=== PATIENT | female | born 1995 | race Two or more races ===

== ENCOUNTER 2023-11-13 10:31 | Day surgery (SDC) | payer OTHER ==
[2023-11-06 15:30] VITALS: BMI 18.0
[2023-11-13 10:50] VITALS: RESP 16
[2023-11-13 12:40] VITALS: TEMP 97.1
[2023-11-13 12:42] VITALS: BP 116/83; PULSE 60
== END 2023-11-13 12:40 | disposition home or self-care (01) ==
LOC: FASU-ENDO 10:31
PROVIDERS: ATTEND Internal Medicine Gastroenterology
PROC: 0DB68ZX Excision of Stomach, Via Natural or Artificial Opening Endoscopic, Diagnostic (ICD-10-PCS; 2023-11-13)
PROC: 0DB28ZX Excision of Middle Esophagus, Via Natural or Artificial Opening Endoscopic, Diagnostic (ICD-10-PCS; 2023-11-13)
PROC: 0DB48ZX Excision of Esophagogastric Junction, Via Natural or Artificial Opening Endoscopic, Diagnostic (ICD-10-PCS; 2023-11-13)
PROC: 0DB98ZX Excision of Duodenum, Via Natural or Artificial Opening Endoscopic, Diagnostic (ICD-10-PCS; principal; 2023-11-13 11:44)
DX: K29.50 Unspecified chronic gastritis without bleeding (principal); K22.89 Other specified disease of esophagus
CPT/HCPCS: 81025; 88305-TC; 88342-TC